=== PATIENT | male | born 1940 | race Caucasian/White ===

== ENCOUNTER 2017-11-28 09:10 | Day surgery (SDC) | payer MEDICARE, BC ==
[~2017-11-28 09:10] MED LIST: Povidone-Iodine 5% Sterile Ophth Soln 30 ML Bottle EYELF ONE
[2017-11-28] MEDS ORDERED: Dexamethasone 4 MG/ML SDV IV ONE (09:11)
[2017-11-28] MEDS ORDERED: Sodium Chloride 0.9% 10 ML Syringe IV ONE (09:11)
[2017-11-28] MEDS ORDERED: Midazolam 1 MG/ML 2 ML SDV IV ONE (09:11)
[2017-11-28] MEDS ORDERED: Sodium Chloride 0.9% 10 ML Syringe FLUSH PRN (09:30)
[2017-11-28] MEDS ORDERED: Phenylephrine 10% Ophth Soln 5 ML Bot EYELF ONE (09:30)
[2017-11-28] MEDS ORDERED: Moxifloxacin 0.5% Ophth Soln 3 ML Bottle EYELF ONE (09:30)
[2017-11-28] MEDS ORDERED: Cataract Ophth Solution EYELF ONE (09:30)
[2017-11-28] MEDS ORDERED: Timolol Maleate 0.5% Ophth Soln 5 ML Bottle EYELF ONE (09:30)
[2017-11-28] MEDS ORDERED: Acetaminophen 325 MG Tab PO PRN (09:30)
[2017-11-28] MEDS ORDERED: Proparacaine 0.5% Ophth Soln 15 ML Bottle EYELF ONE (09:30)
[2017-11-28] MEDS ORDERED: Ondansetron 4 MG/2 ML SDV IVPUSH PRN (09:30)
[2017-11-28] MEDS ORDERED: Phenylephrine 10% Ophth Soln 5 ML Bot EYELF PRN (09:30)
[2017-11-28] MEDS ORDERED: Lidocaine 1% 30 ML SDV ONE (10:33)
[2017-11-28] MEDS ORDERED: Tetracaine HCl/PF 0.5% 4 ML Bottle EYELF ONE (10:33)
[2017-11-28] MEDS ORDERED: Dexamethasone/Neomycin/Polymyxin B Ophth Oint 3.5 GM Tube EYELF ONE (10:33)
[2017-11-28] MEDS ORDERED: Diclofenac Sodium 0.1% Ophth Soln 5 ML Bottle EYELF ONE (10:34)
[2017-11-28] MEDS ORDERED: Vancomycin 500 MG SDV EYELF ONE (10:34)
[2017-11-28] MEDS ORDERED: Balanced Salt Solution Ophth Irrig 500 ML Bottle IOCULAR ONE (10:35)
[2017-11-28] MEDS ORDERED: Chondroitin Sulfate/Hyaluronate Sodium Ophth Inj 0.5 ML Syringe IOCULAR ONE (10:35)
[2017-11-28] MEDS ORDERED: Apraclonidine 0.5% Ophth Soln 5 ML Bot EYELF ONE (10:36)
--- NOTE | 2017-11-28 13:21 | OR ---
DATE: 11/28/2017 PREOPERATIVE DIAGNOSIS: Visually significant mixed cataract, left eye. POSTOPERATIVE DIAGNOSIS: Visually significant mixed cataract, left eye. PROCEDURE: Extracapsular cataract extraction with intraocular lens implant, left eye. ANESTHESIA: Local MAC. COMPLICATIONS: None. INDICATION: The patient was seen in the clinic. Complains of difficulty reading, difficulty seeing television. 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 Surgical risks were explained preoperatively including the potential for vision loss. He voiced an understanding and requested surgery to improve vision and function. He requested a monofocal implant. OPERATIVE DESCRIPTION: After informed consent was obtained and the risks, benefits, and alternatives were explained, the patient was brought to the operative suite and topical anesthesia was administered. The patient was then prepped and draped in the sterile fashion and attention was placed on the left eye. A sterile lid speculum was placed into the left eye to allow operative exposure. A full-thickness paracentesis was made in the temporal portion of the operative eye. Preservative-free lidocaine 0.1 mL was injected into the anterior chamber followed by viscoelastic. A full-thickness corneal incision was then made into the anterior chamber. A bent needle cystotome was used to create a small grayson in the anterior capsule. The capsulorrhexis forceps was then used to create a 360-degree curvilinear capsulorrhexis. The nucleus was then removed using a phacoemulsification handpiece and the remaining cortical material was then removed with irrigation and aspiration handpiece. Following removal of the cortical material, the capsular bag was then inspected and noted to be free of any holes or tears. Viscoelastic was then injected into the capsular bag and the intraocular lens was inserted into the capsular bag. The viscoelastic material was then removed from both the anterior and posterior chambers and from behind the IOL. The lens and capsular bag were then reinspected. The IOL was well centered and the capsular bag intact. The wound and paracentesis sites were inspected and hydrated with balanced saline solution. Both were found to be self- sealing. The intraocular pressure was assessed digitally and found to be within normal range. A good red reflex was noted at the completion of the procedure. No complications occurred during the operation. At the completion of the procedure, Maxitrol, Voltaren, and Iopidine drops were placed into the operative eye. A sterile eye shield was placed over the operative eye and the patient was transported to the postoperative recovery area having tolerated the procedure well. Postoperative instructions were given along with a postoperative appointment. The patient was advised to call with any questions or concerns. No complications occurred. [facility] /[id number]
== END 2017-11-28 11:45 | disposition home or self-care (01) ==
LOC: DL.SDS 09:10
PROVIDERS: ATTEND Ophthalmology
DX: H25.812 Combined forms of age-related cataract, left eye (principal); I10 Essential (primary) hypertension; E78.1 Pure hyperglyceridemia; G47.30 Sleep apnea, unspecified; Z99.89 Dependence on other enabling machines and devices; Z79.01 Long term (current) use of anticoagulants
CPT/HCPCS: 00142; 66984; A9270; J1100; J2250; J3370; J7050; V2632; 20610

== ENCOUNTER 2017-12-05 08:15 | Day surgery (SDC) | payer MEDICARE, BC ==
[2017-12-05] MEDS ORDERED: Sodium Chloride 0.9% 10 ML Syringe IV ONE (08:16)
[2017-12-05] MEDS ORDERED: Dexamethasone 4 MG/ML SDV IV ONE (08:16)
[2017-12-05] MEDS ORDERED: Midazolam 1 MG/ML 2 ML SDV IV ONE (08:16)
[2017-12-05] MEDS ORDERED: Sodium Chloride 0.9% 10 ML Syringe FLUSH PRN (08:30)
[2017-12-05] MEDS ORDERED: Phenylephrine 10% Ophth Soln 5 ML Bot EYERT ONE (08:30)
[2017-12-05] MEDS ORDERED: Phenylephrine 10% Ophth Soln 5 ML Bot EYERT PRN (08:30)
[2017-12-05] MEDS ORDERED: Povidone-Iodine 5% Sterile Ophth Soln 30 ML Bottle EYERT ONE ×2 (08:30→09:10)
[2017-12-05] MEDS ORDERED: Timolol Maleate 0.5% Ophth Soln 5 ML Bottle EYERT ONE (08:30)
[2017-12-05] MEDS ORDERED: Proparacaine 0.5% Ophth Soln 15 ML Bottle EYERT ONE (08:30)
[2017-12-05] MEDS ORDERED: Acetaminophen 325 MG Tab PO PRN (08:30)
[2017-12-05] MEDS ORDERED: Cataract Ophth Solution EYERT ONE (08:30)
[2017-12-05] MEDS ORDERED: Ondansetron 4 MG/2 ML SDV IVPUSH PRN (08:30)
[2017-12-05] MEDS ORDERED: Moxifloxacin 0.5% Ophth Soln 3 ML Bottle EYERT ONE (08:30)
[2017-12-05] MEDS ORDERED: Tetracaine HCl/PF 0.5% 4 ML Bottle EYERT ONE (09:10)
[2017-12-05] MEDS ORDERED: Lidocaine 1% 30 ML SDV ONE (09:11)
[2017-12-05] MEDS ORDERED: Apraclonidine 0.5% Ophth Soln 5 ML Bot EYERT ONE (09:11)
[2017-12-05] MEDS ORDERED: Chondroitin Sulfate/Hyaluronate Sodium Ophth Inj 0.5 ML Syringe IOCULAR ONE (09:12)
[2017-12-05] MEDS ORDERED: Balanced Salt Solution Ophth Irrig 500 ML Bottle IOCULAR ONE (09:12)
[2017-12-05] MEDS ORDERED: Dexamethasone/Neomycin/Polymyxin B Ophth Oint 3.5 GM Tube EYERT ONE (09:12)
[2017-12-05] MEDS ORDERED: Vancomycin 500 MG SDV EYERT ONE (09:12)
--- NOTE | 2017-12-05 11:00 | OR ---
DATE: 12/05/2017 PREOPERATIVE DIAGNOSIS: Visually significant mixed cataract, right eye. POSTOPERATIVE DIAGNOSIS: Visually significant mixed cataract, right eye. PROCEDURE: Extracapsular cataract extraction with intraocular lens implant, right eye. ANESTHESIA: Topical/local MAC. COMPLICATIONS: None. INDICATION: Mr. Song was seen in the clinic with complaints of difficulty reading, difficulty seeing television. His clinical examination revealed visually significant age related mixed nuclear and cortical cataract. I explained options, I offered cataract surgery, and I explained risks. He is symptomatic and requested surgery to improve vision and function. He requested a monofocal implant OPERATIVE DESCRIPTION: After informed consent was obtained and the risks, benefits, and alternatives were explained, the patient was brought to the operative suite and topical anesthesia was administered. The patient was then prepped and draped in the sterile fashion and attention was placed on the right eye. A sterile lid speculum was placed into the right eye to allow operative exposure. A full-thickness paracentesis was made in the temporal portion of the operative eye. Preservative-free lidocaine 0.1 mL was injected into the anterior chamber followed by viscoelastic. A full-thickness corneal incision was then made into the anterior chamber. A bent needle cystotome was used to create a small grayson in the anterior capsule. The capsulorrhexis forceps was then used to create a 360-degree curvilinear capsulorrhexis. The nucleus was then removed using a phacoemulsification handpiece and the remaining cortical material was then removed with irrigation and aspiration handpiece. Following removal of the cortical material, the capsular bag was then inspected and noted to be free of any holes or tears. Viscoelastic was then injected into the capsular bag and the intraocular lens was inserted into the capsular bag. The viscoelastic material was then removed from both the anterior and posterior chambers and from behind the IOL. The lens and capsular bag were then reinspected. The IOL was well centered and the capsular bag intact. The wound and paracentesis sites were inspected and hydrated with balanced saline solution. Both were found to be self- sealing. The intraocular pressure was assessed digitally and found to be within normal range. A good red reflex was noted at the completion of the procedure. No complications occurred during the operation. At the completion of the procedure, Maxitrol, Voltaren, and Iopidine drops were placed into the operative eye. A sterile eye shield was placed over the operative eye and the patient was transported to the postoperative recovery area having tolerated the procedure well. Postoperative instructions were given along with a postoperative appointment. The patient was advised to call with any questions or concerns. No complications occurred. [facility] /[id number]
== END 2017-12-05 10:17 | disposition home or self-care (01) ==
LOC: DL.SDS 08:15
PROVIDERS: ATTEND Ophthalmology
DX: H25.811 Combined forms of age-related cataract, right eye (principal); I10 Essential (primary) hypertension; E78.1 Pure hyperglyceridemia; G47.30 Sleep apnea, unspecified; Z79.01 Long term (current) use of anticoagulants; E78.5 Hyperlipidemia, unspecified; Z87.891 Personal history of nicotine dependence
CPT/HCPCS: 00142; 66984; A9270; J1100; J2250; J3370; J7050; V2632